=== PATIENT | female | born 1990 | race Caucasian/White ===

== ENCOUNTER 2020-05-28 19:57 | Emergency (ER) | payer SELFPAY ==
[~2020-05-28] VITALS: Ht 170.1 cm; Wt 86.2 kg
[~2020-05-28 19:57] MED LIST: BACTRIM DS 8001 TA1 PO; CEPHALEXIN500 M1 PO; HYDROCODONE BIT1 T11 PO; PYRIDIUM200 MG PO; SILVADENE1% TP
[2020-05-28] MEDS ORDERED: MEDROL DOSEPAK4 MG PO (20:58)
== END 2020-05-28 21:09 | disposition home or self-care (01) ==
LOC: ED 19:57
DX: R21 Rash and other nonspecific skin eruption (principal); F17.200 Nicotine dependence, unspecified, uncomplicated

== ENCOUNTER → 2021-09-30 | Outpatient (CLI) | payer OTHER ==
[~2021-09-30] MED LIST changes: +MEDROL DOSEPAK4 MG PO
== END | disposition home or self-care (01) ==
LOC: COVID19 15:31
PROVIDERS: ATTEND Internal Medicine
DX: U07.1 COVID-19 (principal)

== ENCOUNTER 2024-01-26 16:10 | Emergency (ER) | payer SELFPAY ==
[~2024-01-26] VITALS: Ht 170.1 cm; Wt 81.6 kg
[2024-01-26 17:11] LABS: BASO % 0.2 % (0.0-1.0); EOS # 0.1 10*3/uL (0.0-0.4); EOS % 0.8 % (1.0-4.0); HEMATOCRIT 36.5 % (37.0-47.0); LYMPH # 3.2 10*3/uL (1.3-4.4); LYMPH % 19.1 % (27.0-41.0); MEAN CELL VOLUME 88.6 fl (81.0-99.0); MEAN CORPUSCULAR HGB 29.1 pg (27.0-31.0); MEAN CORPUSCULAR HGB CONC 32.9 g/dl (33.0-37.0); MEAN PLATELET VOLUME 8.3 fl (9.6-12.3); MONO # 0.8 10*3/uL (0.1-1.0); MONO % 4.9 % (3.0-9.0); NEUT # 12.7 10*3/uL (2.3-7.9); NEUT % 74.5 % (47.0-73.0); PLATELET COUNT AUTOMATED 298 10*3/uL (130-400); RED BLOOD COUNT 4.12 10*6/uL (4.10-5.10)
[2024-01-26 17:27] LABS: BILIRUBIN Negative (Negative); BLOOD Negative (Negative); CLARITY Clear (Clear); COLOR Yellow (Yellow); GLUCOSE Negative (Negative); KETONE Negative (Negative); LEUKO ESTERASE 2+ (Negative); NITRITE Negative (Negative); SPECIFIC GRAVITY <= 1.005 (1.001-1.030); UROBILINOGEN 0.2 E.U./dl (0.0-1.0)
[2024-01-26 17:35] LABS: ALKALINE PHOSPHATASE 76 U/L (46-116); BUN 8 mg/dl (9-23); CHLORIDE 104 mmol/L (98-107); LIPASE 24 U/L (12-53); POTASSIUM 3.7 mmol/L (3.4-5.1); SGPT/ALT 66 U/L (5-49); TOTAL PROTEIN 6.8 gm/dL (6.0-8.0)
[2024-01-26 17:37] LABS: BETA-HCG, QUANT < 3.0 mIU/mL (3-10)
[2024-01-26 17:38] LABS: BACTERIA 1+; RBC 0-2 rbc/hpf (0-2); WBC 21-30 wbc/hpf (0-5)
[2024-01-26] MEDS ORDERED: IOHEXOL 300 MG/ML 100 ML VIAL IV ONE (18:35)
[2024-01-26] MEDS ORDERED: VIBRAMYCIN100 MG PO (20:19)
== END 2024-01-26 21:21 | disposition home or self-care (01) ==
LOC: ED 16:10
PROVIDERS: Nurse Practitioner
DX: N39.0 Urinary tract infection, site not specified (principal); D73.89 Other diseases of spleen; R10.2 Pelvic and perineal pain

== ENCOUNTER 2025-07-04 14:48 | Emergency (ER) | payer SELFPAY ==
[~2025-07-04] VITALS: Ht 170.1 cm; Wt 81.6 kg
[~2025-07-04 14:48] MED LIST changes: +VIBRAMYCIN100 MG PO
[2025-07-04] MEDS ORDERED: AMOXICILLIN500 M3 PO (16:59)
== END 2025-07-04 17:11 | disposition home or self-care (01) ==
LOC: ED 14:48
DX: J01.90 Acute sinusitis, unspecified (principal); H92.03 Otalgia, bilateral; Z79.899 Other long term (current) drug therapy